=== PATIENT | male | born 1935 | race Caucasian/White ===

== ENCOUNTER → 2016-06-08 | Outpatient (CLI) | payer OTHER ==
[~2016-06-08] MED LIST: ASPIRIN81 M1 PO; ATORVASTATIN CA20 MG PO; AUGMENTIN875 MG PO; CALCIUM CITRAT1 EA15 PO; CARVEDILOL; CARVEDILOL3.125 MG PO; CEFUROXIME250 MG PO; CIPRO; CIPROFLOXACIN500 M1 PO; CITALOPRAM HBR40 MG PO; COMPAZINE10 MG PO; CRESTOR; CRESTOR10 MG PO; DICLOXACILLIN500 MG PO; DONEPEZIL HCL10 MG PO; DOXYCYCLINE HY100 MG PO; FOLIC ACID1 MG PO; GLIMEPIRIDE; GLIMEPIRIDE2 MG PO; GLIMEPIRIDE4 MG PO; GLUCOPHAGE1000 MG PO; GUAIFENESIN AC473 ML PO; LEXAPRO; LEXAPRO20 MG PO; LIPITOR20 MG PO; LISINOPRIL; PROTONIX40 MG PO; REMERON15 M2 PO; TEMAZEPAM7.5 MG PO; TESSALON PERLE100 MG PO; ULTRAM50 MG PO; VITAMIN B122500 MCG PO; VITAMIN D2000 UNI1 PO; ZESTRIL,PRINIV2.5 MG PO; ZOLOFT100 MG PO; ZUPLENZ8 MG PO
== END | disposition home or self-care (01) ==
LOC: NUC 09:34
DX: M51.36 Other intervertebral disc degeneration, lumbar region (principal); C34.91 Malignant neoplasm of unspecified part of right bronchus or lung; Z95.0 Presence of cardiac pacemaker
CPT/HCPCS: 78306; A9503

== ENCOUNTER 2016-09-07 12:28 | Day surgery (SDC) | payer OTHER ==
[~2016-09-07] VITALS: Ht 177.8 cm; Wt 70.0 kg
[~2016-09-07 12:28] MED LIST changes: +AMOX TR-K CLV1 EAC4 PO; +AZELASTINE205.5 MCG/ BOTH NARES; +FUROSEMIDE20 MG PO; +INCRUSE ELLI62.5 MCG IH; +LO-DOSE ASPIRIN81 M2 PO; +SERTRALINE HCL100 MG PO; +SYMBICORT60 INHALAT IH; +TRAZODONE HCL100 MG PO
[2016-09-07 13:46] LABS: POINT-OF-CARE METER ID UU13113696
== END 2016-09-07 15:45 | disposition home or self-care (01) ==
LOC: CATH 12:28
PROVIDERS: Internal Medicine Cardiovascular Disease
DX: Z45.010 Encounter for checking and testing of cardiac pacemaker pulse generator [battery] (principal); I44.2 Atrioventricular block, complete; I42.0 Dilated cardiomyopathy; E11.9 Type 2 diabetes mellitus without complications; I10 Essential (primary) hypertension; F03.90 Unspecified dementia, unspecified severity, without behavioral disturbance, psychotic disturbance, mood disturbance, and anxiety; I47.2 Ventricular tachycardia; I25.10 Atherosclerotic heart disease of native coronary artery without angina pectoris; E78.01 Familial hypercholesterolemia; Z87.891 Personal history of nicotine dependence; Z79.84 Long term (current) use of oral hypoglycemic drugs; Z79.82 Long term (current) use of aspirin
CPT/HCPCS: 82948; C1785; J0690; J1200; J2250; J3010; S0020